=== PATIENT | male | born 1955 | race Caucasian/White ===

== ENCOUNTER 2016-04-17 05:17 | Day surgery (SDC) | payer BC ==
[~2016-04-17] VITALS: Ht 172.7 cm; Wt 81.6 kg
[~2016-04-17 05:17] MED LIST: ALEVE220 MG PO; VITAMIN C 500500 MG PO
[2016-04-17 06:20] VITALS: BP 104/68; Ht 172.7 cm; Wt 81.6 kg
--- NOTE | 2016-04-17 12:24 | NUR ---
1130--IV DC'D, PT UP TO DRESS AT THIS TIME. VILMA PAGE 1200--DISCHARGE INSTRUCTIONS GIVEN, PT VERBALIZES UNDERSTANDING. PT OFF UNIT VIA WC. VILMA PAGE
--- NOTE | 2016-05-22 08:50 | OP ---
PATIENT NAME: CHRISS LAI MEDICAL RECORD: [id number] :51 LOCATION:D.OPS ADMISSION DATE: SURGEON: MARIPOSA CORONA DPM DATE OF OPERATION: 04/17/2016 PREOPERATIVE DIAGNOSES: 1. Hallux abductovalgus, left foot. 2. Instability, first met cuneiform joint. 3. Plantar plate rupture, left second metatarsophalangeal joint. 4. Hammertoe deformity, left second digit. POSTOPERATIVE DIAGNOSES: 1. Hallux abductovalgus, left foot. 2. Instability, first met cuneiform joint. 3. Plantar plate rupture, left second metatarsophalangeal joint. 4. Hammertoe deformity, left second digit. PROCEDURES: 1. Spencer bunionectomy, left foot. 2. First met cuneiform joint fusion, left foot. 3. Enmanuel osteotomy, left second metatarsal. 4. Plantar plate repair, left second MPJ. 5. PIPJ fusion, left second digit. ANESTHESIA: General with preoperative popliteal block per the anesthesia department with infiltration of 3 cc of lidocaine and Marcaine, medial ankle along the coursing of the saphenous nerve. HEMOSTASIS: Left thigh tourniquet at 350 mmHg. PREOPERATIVE DETAILS: The patient was taken to the OR and placed on the operating table in a supine position. This was followed by induction of general anesthesia and infiltration of local anesthetic in the medial ankle area. The left extremity was then prepped and draped in the usual aseptic technique followed by elevation of extremity and inflation of tourniquet. A 15-blade was used to create for procedure. PROCEDURE #1: Spencer bunionectomy, left foot. A 15-blade was used to create an incision over the first ray dorsally extending to the base of proximal phalanx of the hallux. The incision was deepened down through subcutaneous tissue to the first MPJ where an inverted L capsulotomy was performed. The medial capsular flap was reflected and the head of the first metatarsal was delivered. A sagittal saw was used to resect the medial eminence. Attention was then directed to the first interspace where a lateral release was performed. Good clinical reduction of the lateral contracture was verified. PROCEDURE #2: First met cuneiform joint fusion. The incision as described in #1 was lengthened proximal to the dorsal aspect of the medial cuneiform. The incision was deepened down through subcutaneous tissue being sure to avoid sacrificing the medial dorsal cutaneous nerve. A periosteal incision was then made. Periosteum was freed. At this time, the first met cuneiform joint was visualized and resected with a bone saw and temporarily fixated with a K-wire and a 5-hole plate with 1 hole being for compression screw, was placed over the fusion site, utilizing the C-arm to verify good placement. There was excellent rigid internal fixation with excellent alignment of the first ray and excellent OPERATIVE REPORT [id number] CHRISS LAI compression of the fusion site. The wound was flushed. The periosteum as well as the first MPJ were then repaired with 2-0 Vicryl, the subcutaneous tissue with 4-0 Rapide and the skin was closed with 4-0 Rapide in a subcuticular technique followed by Dermabond. PROCEDURE #3: Enmanuel osteotomy, left second metatarsal. A 15-blade was used to create a curvilinear incision extending from the mid shaft of the second metatarsal on top of the PIPJ of the left second digit. The incision was deepened down through subcutaneous tissue to the extensor longus tendon which was transected in a Z fashion giving access to the second MPJ where a linear capsulotomy was performed exposing the base of proximal phalanx and the head of the second metatarsal. At this time, a sagittal saw was used to create a Enmanuel osteotomy from dorsal distal to plantar proximal in the second metatarsal. The capital fragment was translocated proximally and temporarily fixated with a K-wire. At this time, a second wire was placed in the proximal phalanx of the second digit. A wire retractor was then placed over the wires and the joint was distracted. There was noted to be a significant central tear of the plantar plate. A 15-blade was used to free the plantar plate attached to the base of the proximal phalanx. FiberWire was then passed through with a scorpion passer in 2 places, both medial and lateral to the tear. Two small drill holes were then placed in the base of the proximal phalanx and the FiberWire was passed up through the drill holes in the base of the proximal phalanx. The 2 K-wires were then removed. The Enmanuel osteotomy was then fixated with 2 pop-off screws giving good rigid fixation and the plantar plate was repaired by suturing using surgeon's knots to tie the FiberWire as it passed up through the base of proximal phalanx holding the second digit in a slightly plantarflexed position at the MPJ. Following tying the surgeon's knots, there was noted to be excellent repair of the plantar plate with the digit in a rectus position at the MPJ. PROCEDURE #4: Plantar plate repair. PROCEDURE #5: PIPJ fusion, left second digit. The incision as described above was utilized and this PIPJ was delivered. A sagittal saw was used to resect the head of the proximal phalanx and the base of the middle phalanx. A 2.7 drill was then used to drill the proximal and middle phalanx and a 2.7 TenFuse bone graft was placed in the proximal fragment with the distal fragment being elevated over the top and then compressed on the stump of the bone graft that was exiting the proximal phalanx giving excellent rigid fixation and alignment of the digit. The wound was flushed. The joint capsule of the second MPJ was then repaired with 2-0 Vicryl, the extensor longus tendon was repaired with 4-0 Rapide and the subcutaneous tissue was brought together with 4-0 Rapide and the skin was closed with 4-0 Rapide in a subcuticular technique followed by Dermabond, Adaptic, 4 x 4 and Conform were used to dress both wounds, followed by application of a modified Edmonds compression dressing. Tourniquet was deflated. POSTOPERATIVE DETAILS: The patient tolerated the procedure well and left the OR with vital signs stable and vascular status at preoperative levels. The patient was transported to recovery per anesthesia in stable condition. TRANSINT:[id number] Voice Confirmation ID: [id number] DOCUMENT ID: [id number] OPERATIVE REPORT [id number] CHRISS LAI, MARIPOSA KHAN at 0850 CC: [id number] DICTATION DATE: 04/17/16 0936 HOT MIX OPERATOR: 04/17/[address] [place] [address] 04/17/16 [place] [id number] [place] [address]
== END 2016-04-17 12:00 | disposition home or self-care (01) ==
LOC: D.OPS 05:17 → D.PAN 09:45 → D.OPS 12:00
DX: M20.12 Hallux valgus (acquired), left foot (principal); M25.375 Other instability, left foot; S93.692A Other sprain of left foot, initial encounter; M20.42 Other hammer toe(s) (acquired), left foot

== ENCOUNTER 2016-04-22 13:20 | Outpatient (CLI) | payer BC ==
[~2016-04-22] VITALS: Ht 172.7 cm; Wt 81.8 kg
--- NOTE | ~2016-04-22 | HEMODYNAMI ---
PATIENT:CHRISS LAI MEDICAL RECORD: [id number] : 51 LOCATION:[facility] D.[address] [facility]# [id number] ADMISSION DATE: 04/22/16 Generatedon:04/23/201611:34 Patient name: CHRISS LAI Patient #: [id number] SSN: : 1955 Date of study: 04/23/2016 Page: Of Hemodynamic Procedure Report Patient Data Patient Demographics Procedure consent was obtained First Name: CHRISS Gender: Male Last Name: JOELLE : 1955 [facility] Initial: KARLO Age: 60 year(s) Patient #: [id number] Race: Additional ID: [id number] Contact details Address: [address] [place] [address] [facility] State: [place] City: [place] Zip code: [address] Past Medical History Allergies: No known allergies Admission Admission Data Admission Date: 04/22/2016 Admission Time: 14:16 Admit Source: Other Insurance Payor: Private Room #: [id number] health insurance Height (in.): 68 BSA: 1.96 (m2) Height (cm.): 172.72 BMI: 27.49 (kg/m2) Weight (lbs.): 180.78 Weight (kg.): 82 Lab Results Lab Result Date: 04/23/2016 Lab Result Time: 9:26 Biochemistry Name Units Result Min Max BUN mg/dl 17 --(---*)-- 7 18 Creatinine mg/dl 1.1 --(--*-)-- 0.6 1.3 CBC Name Units Result Min Max Hemoglobin g/dl 15.9 --(--*-)-- 13.5 17.5 Procedure Procedure Types Cath Procedure Diagnostic Procedure LHC LH w/Coronaries PCI Procedure Coronary Stent Initial Miscellaneous Procedures Moderate Sedation up to 15 minutes Procedure Description Procedure Date Procedure Date: 04/23/2016 Procedure Start Time: 11:14 Procedure End Time: 11:33 Procedure Staff Name Function Naseem Hoff MD Performing Physician Miranda Garcia RT Scrub Ashley Liu RN Nurse Guero Baldwin RT Monitor Galileo Ledbetter RT [employer] Procedure Data Cath Procedure Fluoroscopy Diagnostic fluoroscopy Total fluoroscopy Time: 4.4 time: 4.4 min min Diagnostic fluoroscopy Total fluoroscopy dose: dose: 176.42 mGy 176.42 mGy Contrast Material Contrast Material Type Amount (ml) Isovue 300 81 Entry Location Entry Primary Successful Side Size Upsize Upsize Entry Closure Moser ccessful Closure Location (Fr) 1 (Fr) 2 (Fr) Remarks Device Remarks Radial Right 6 Fr Mechanical artery Short Compression Estimated blood loss: 10 ml Diagnostic catheters Device Type Used For End Catheter Placement Terumo 5Fr Rashi 110cm Procedure catheter Procedure Complications No complications Procedure Medications Medication Administration Route Dosage Oxygen NC 2 l/min Heparin Flush Bag added to field 2 bags (1000units/500ml NS) Lidocaine 2% added to field 20 Radial Cocktail added to field 1 syringe (Verapomil 2mg/Nitro 400mcg/Heparin 1500units) 0.9% NaCl I.V. 150 ml/hr Versed I.V. 1 mg Fentanyl I.V. 50 mcg Versed I.V. 1 mg Fentanyl I.V. 50 mcg Radial Cocktail I.A. 1 syringe (Verapomil 2mg/Nitro 400mcg/Heparin 1500units) Versed I.V. 1 mg Fentanyl I.V. 50 mcg Heparin Bolus I.V. 4000 units Versed I.V. 1 mg Fentanyl I.V. 50 mcg Plavix P.O. 75 mg Hemodynamics Rest BSA: 1.96 (m2) HGB: 15.9 (g/dl) O2 Consumption: Estimated: 238.73 (ml/min) O2 Co nsumption indexed: Estimated:121.8 (ml/min/m) Heart Rate: 82 (bpm) Snapshots Pre Cath Intra NCS Post Cath Vital Signs Time Heart Resp SPO2 NIBP Rhythm Pain Sedation Rate (ipm) (%) (mmHg) Status Level (bpm) 10:54:11 82 19 98 116/73(95) NSR 0 (11) 10(A) , No pain 10:58:13 82 15 96 119/75(92) NSR 0 (11) 10(A) , No pain 11:02:21 81 15 97 108/75(92) NSR 0 (11) 10(A) , No pain 11:06:27 82 16 96 109/71(94) NSR 0 (11) 10(A) , No pain 11:10:35 82 15 95 114/72(94) NSR 0 (11) 10(A) , No pain 11:14:46 85 16 96 121/67(83) NSR 0 (11) 10(A) , No pain 11:19:00 98 14 96 108/70(91) NSR 0 (11) 10(A) , No pain 11:23:06 91 16 96 116/71(84) NSR 0 (11) 10(A) , No pain 11:27:12 92 16 96 110/69(87) NSR 0 (11) 10(A) , No pain 11:30:04 91 14 96 99/66(91) NSR 0 (11) 10(A) , No pain Medications Time Medication Route Dose Verified Delivered Reason Note s Effectiveness by by 10:57:07 Oxygen NC 2 l/min Naseem Ashley Per physician Luis Eduardo Liu RN 10:57:14 Heparin Flush added 2 bags Naseem Gusman used for Bag to Luis Eduardo Hoff MD procedure (1000units/500ml field NS) 10:57:21 Lidocaine 2% added 20ml Naseem Naseem used for to vial Luis Eduardo Hoff MD procedure field 10:57:27 Radial Cocktail added 1 Naseem Naseem used for (Verapomil to syringe Luis Eduardo Hoff MD procedure 2mg/Nitro field 400mcg/Heparin 1500units) 11:00:23 0.9% NaCl I.V. 150 Naseem Ashley Per physician ml/hr Luis Eduardo Liu RN 11:13:54 Versed I.V. 1 mg Naseem Ashley for sedation Luis Eduardo Liu RN 11:14:01 Fentanyl I.V. 50 mcg Naseem Ashley for sedation Luis Eduardo Liu RN 11:15:42 Radial Cocktail I.A. 1 Naseem Naseem for (Verapomil syringe Luis Eduardo Hoff MD vasodilation 2mg/Nitro 400mcg/Heparin 1500units) 11:15:51 Versed I.V. 1 mg Naseem Ashley for sedation Luis Eduardo Liu RN 11:15:57 Fentanyl I.V. 50 mcg Naseem Ashley for sedation Luis Eduardo Liu RN 11:17:33 Versed I.V. 1 mg Naseem Ashley for sedation Luis Eduardo Liu RN 11:18:45 Fentanyl I.V. 50 mcg Naseem Ashley for sedation Luis Eduardo Liu RN 11:21:52 Versed I.V. 1 mg Naseem Ashley for sedation Luis Eduardo Liu RN 11:22:17 Fentanyl I.V. 50 mcg Naseem Ashley for sedation Luis Eduardo Liu RN 11:23:32 Heparin Bolus I.V. 4000 Naseem Ashley for dose units Luis Eduardo Liu RN anticoagulation verified with dr hoff 11:29:18 Plavix P.O. 75 mg Naseem Ashley for Luis Eduardo Liu RN antiplatelet therapy Procedure Log Time Note 10:15:38 Galileo Ledbetter RT(R) sent for patient. Start room use. 10:45:06 Informed consent obtained and on chart 10:45:34 Admit Source: Other 10:46:26 Time tracking: Regular hours 10:46:30 Plan of Care:Hemodynamics will remain stable., Cardiac rhythm will remain stable., Comfort level will be maintained., Respiratory function will remain adequate., Patient/ family verbilizes understanding of procedure., Procedure tolerated without complication., Recovers from procedure without complications.. 10:46:35 Patient received from Med II to CCL 2 Alert and oriented. Tansferred to table in Supine position. 10:46:36 Warm blankets applied, and sally hugger turned on for patient comfort. 10:46:36 Correct patient and procedure confirmed by team. 10:46:38 ECG and BP/O2 sat monitors applied to patient. 10:46:44 H&P Date Dictated: 04/22/2016 Within 30 days and on chart.. 10:46:45 Pre-procedure instructions explained to patient. 10:46:45 Pre-op teaching completed and patient verbalized understanding. 10:46:47 Family in patients room. 10:46:48 Patient NPO since Midnight. 10:53:10 Vital chart was started 10:57:07 Oxygen 2 l/min NC was given by Ashley Liu RN; Per physician; 10:57:14 Heparin Flush Bag (1000units/500ml NS) 2 bags added to field was given by Naseem Hoff MD; used for procedure; 10:57:21 Lidocaine 2% 20ml vial added to field was given by Naseem Hoff MD; used for procedure; 10:57:27 Radial Cocktail (Verapomil 2mg/Nitro 400mcg/Heparin 1500units) 1 syringe added to field was given by Naseem Hoff MD; used for procedure; 11:00:23 0.9% NaCl 150 ml/hr I.V. was given by Ashley Liu RN; Per physician; 11:02:19 Patient allergic to No known allergies 11:02:21 Is the patient allergic to Iodine/contrast media? No. 11:02:25 Is patient on blood thinner?Yes 11:02:27 ACC The patient was administered the following blood thiners within the last 24 hours: ACCPlavix 11:02:31 Patient diabetic? No. 11:02:35 Previous problem with sedation/anesthesia? No ? 11:02:36 Snore? Yes 11:02:37 Sleep apnea? No 11:02:39 Deviated septum? No 11:02:40 Opens mouth fully? Yes 11:02:41 Sticks out tongue? Yes 11:02:42 Airway obstruction? No ? 11:02:45 Dentures? No ? 11:02:51 Modified Anselmo's test Ulnar < 7 seconds 11:02:53 Patient pain scale 0/10 ?. 11:02:59 IV patent on arrival in right wrist with 0.9% NaCl at KVO. 11:03:29 Lab Result : Creatinine 1.1 mg/dl 11:03:29 Lab Result : BUN 17 mg/dl 11:03:29 Lab Result : Hemoglobin 15.9 g/dl 11:03:32 Lab results completed and on chart. 11:03:35 Right Radial & Right Groin area was prepped with chlora-prep and draped in sterile fashion 11:03:36 Alarms reviewed by R. N. 11:03:37 Sharps counted by scrub and verified by R.N. 11:03:39 Use device set Radial Dx 11:03:41 Tegaderm 4 x 4 opened to sterile field. 11:03:42 Acist Manifold opened to sterile field. 11:03:42 Acist Hand Control opened to sterile field. 11:03:43 Acist Syringe opened to sterile field. 11:03:43 Medline Cath Pack opened to sterile field. 11:03:44 Bag Decanter opened to sterile field. 11:03:45 Terumo 6Fr Slender Glidesheath opened to sterile field. 11:03:45 St Chato 260cm J .035 wire opened to sterile field. 11:03:57 Baseline sample Acquired. 11:04:02 Rhythm: sinus rhythm 11:04:08 Full Disclosure recording started 11:05:24 Patient Height : 172.72 inches 11:05:28 Patient Weight : 82 lbs 11:05:33 Insurance Payor : Private health insurance 11:06:18 ACC Patient presents with Unstable Angina CCS Anginal Class 3--Marked limitation of physical activity, angina occurs with ordinary activity.. 11:08:48 Zero performed for pressure channel P1 11:10:03 Zero performed for pressure channel P1 11:13:50 --------ALL STOP TIME OUT------ 11:13:50 Final Timeout: patient, procedure, and site verified with staff and physician. All members of the team are in agreement. 11:13:52 Right Radial & Right Groin site verified by team. 11:13:54 Versed 1 mg I.V. was given by Ashley Liu RN; for sedation; 11:13:54 Physical assessment completed. ASA score P 2 - A patient with mild systemic disease as per Naseem Hoff MD. 11:13:57 Sedation plan: IV Moderate Sedation Versed, Fentanyl 11:14:01 Fentanyl 50 mcg I.V. was given by Ashley Liu RN; for sedation; 11:14:34 Procedure started. 11:14:38 Local anesthetic to right radial artery with Lidocaine 2% by Naseem Hoff MD.INITIAL ACCESS ONLY 11:14:46 A 6 Fr Short sheath was inserted into the Right Radial artery 11:14:57 A Terumo 5Fr Rashi 110cm catheter was advanced over the wire and used for Procedure. 11:15:39 Baseline sample Acquired. 11:15:42 Radial Cocktail (Verapomil 2mg/Nitro 400mcg/Heparin 1500units) 1 syringe I.A. was given by Naseem Hoff MD; for vasodilation; 11:15:51 Versed 1 mg I.V. was given by Ashley Liu RN; for sedation; 11:15:57 Fentanyl 50 mcg I.V. was given by Ashley Liu RN; for sedation; 11:16:15 LV gram done using UJNE 11:16:18 Injector settings: Ml/sec: 5, Volume: 15, 11:17:01 EF : 60 % 11:17:18 RCA angiography performed. 11:17:27 ACCDominant side:Left 11:17:33 Versed 1 mg I.V. was given by Ashley Liu RN; for sedation; 11:17:49 Catheter exchanged over wire. 11:18:08 Medtronic Launcher 6Fr EBU 3.5 guide catheter opened to sterile field. 11:18:15 6 Fr ebu 3.5 guide catheter was inserted over the wire 11:18:45 Fentanyl 50 mcg I.V. was given by Ashley Liu RN; for sedation; 11:19:48 catheter removed, unable to advance. 11:19:54 Medtronic Launcher 5Fr EBU 3.5 guide catheter opened to sterile field. 11:20:02 5 Fr ebu 3.5 guide catheter was inserted over the wire 11:20:33 LCA angiography performed. 11:21:52 Versed 1 mg I.V. was given by Ashley Liu RN; for sedation; 11:22:01 Employee Benefit Plans BasixCompak Inflation Kit opened to sterile field. 11:22:02 Chua Whisper J 300cm 0.014 guide wire opened to sterile field. 11:22:17 Fentanyl 50 mcg I.V. was given by Ashley Liu RN; for sedation; 11:23:32 Heparin Bolus 4000 units I.V. was given by Ashley Liu RN; for anticoagulation; dose verified with dr hoff 11:23:42 whisper wire advanced. 11:26:21 Wire advanced across lesion. 11:26:24 Inflation Number: 1 A Promus Premier OTW 2.25 x 20 stent was prepped and advanced across the Mid LAD. The stent was deployed at 0 ANA for 0:10 (min:sec). 11:26:53 ACC PCI Site: mLAD has 80% stenosis. 11:26:55 ACC Pre-intervention ANNE Flow is 3. 11:28:09 ACC Post-intervention ANNE Flow is 3. 11:28:25 Stent catheter was removed intact over wire. 11:: Wire removed. 11:: Guide catheter removed. 11::32 Terumo TR Band Standard opened to sterile field. 11::43 Sheath removed intact; hemostasis achieved with Mechanical Compression to the Right Radial artery. 11:28:45 Procedure ended.(Physican Out) 11::18 Plavix 75 mg P.O. was given by Ashley Liu RN; for antiplatelet therapy; ::16 Fluoroscopy time 04.40 minutes. 11:: Flurop Dose total: 176.42 11:: Fluoroscopy dose: 176.42 mGy :: Contrast amount:Isovue 300 81ml. 11:31:27 Sharps counted by scrub and verified by R.N. 11::29 TR band inflated with 10cc of air. 11:31:31 Insertion/operative site no bleeding no hematoma. 11:31:44 Post right radial artery:stable, soft, clean and dry 11:31:46 Post Procedure Pulses reassessed and unchanged 11:31:48 Post-procedure physical assessment completed. ASA score P 2 - A patient with mild systemic disease as per Naseem Hoff MD. 11:31:51 Post procedure rhythm: unchanged. 11:31:53 Estimated blood loss: 10 ml 11:31:55 Post procedure instruction explained to patient.Patient verbalizes understanding. 11:31:55 Patient needs reinforcement of post procedure teaching. 11:32:26 Procedure type changed to Cath procedure, Diagnostic procedure, LHC, LHC w/Coronaries, PCI procedure, Coronary Stent Initial, Miscellaneous Procedures, Moderate Sedation up to 15 minutes 11:32:29 Procedure and supply charges have been captured, reviewed, submitted and are correct. 11:33:02 Procedure Complication : No complications 11:33:03 Vital chart was stopped 11:33:04 See physician's report for complete and final results. 11:33:06 Report given to PCU. 11:33:10 Patient transfered to PCU with Stretcher. 11:33:15 Procedure ended. 11:33:15 Full Disclosure recording stopped 11:33:22 ACC-PCI Only Patient was given prescriptions, or instructed by Naseem Hoff MD to start/continue the following medications upon discharge: Plavix Intervention Summary Intervention Notes Time ActionType Lesion and Equipment Action# Pressure Duration Attributes Used 11:26:24 Place stent Mid LAD Promus 1 0 00:10 Premier OTW 2.25 x 20 stent Device Usage Item Name Manufacture Quantity Catalog Number Hospital Part Current Mini mal Lot# / Charge Number Stock Stock Serial# Code Tegaderm 4 3M 1 [id number] 822637 [id number] 5 x 4 Acist Acist 1 11509 191334 436278 846363 5 Manifold Medical Systems Inc Acist Hand Acist 1 31696 200219 732115 016808 5 Control Medical Systems Inc Acist Acist 1 49437 670346 220905 040086 20 Syringe Medical Systems Inc Medline Cardinal 1 [id number] 915514 94337 893686 5 Cath Pack Health Bag Microtek 1 2002S 284234 87859 398591 5 Power Vision Inc. Terumo 6Fr Terumo 1 [id number] 270156 217604 779601 [address] St Chato 1 [id number] 290328 950769 693805 30 260cm J .035 wire Terumo 5Fr Terumo 1 40-1378 046944 412127 030081 5 Rashi 110cm catheter Medtronic Medtronic 1 [id number] 637091 56193 127151 3 Launcher 6Fr EBU 3.5 guide catheter Medtronic Medtronic 1 [id number] 540007 461011 109677 1 Launcher 5Fr EBU 3.5 guide catheter Merit Merit 1 [id number] 561399 426789 812921 15 BasixComnek Medical Inflation Kit Chua Chua 1 [id number] 414296 403593 519505 5 Whisper J Vascular 300cm 0.014 guide wire Promus [place] 1 [id number] 277997 756131 5 [id number] Premier OTW Scientific 2.25 x 20 stent Terumo TR Terumo 1 [id number] 146754 443848 629569 40 Band Standard Signature Audit [place] Stage Time Signature Unsigned Intra-Procedure 04/23/2016 Guero Baldwin 11:34:10 AM RT(R) Signatures Monitor : Guero Baldwin RT Signature : Date : Time : [address] [place] [address]
[2016-04-22 09:31] LABS: BASOPHILS 0.1 % (0.0-2.0); EOSINOPHILS 1.3 % (0-7); HEMATOCRIT 46.8 % (42.0-54.0); HEMOGLOBIN 15.9 g/dL (13.5-17.5); IMMATURE GRANULOCYTES 0.4 % (0-5); LYMPHOCYTES 11.6 % (15-50); MCH 29.1 pg (26.0-34.0); MCV 85.6 fL (80.0-100.0); MEAN PLATELET VOLUME 9.3 fL (7.4-10.4); MONOCYTES 11.7 % (2-11); NEUTROPHILS 74.9 % (40-80); PLATELET COUNT 268 10x3/uL (130-400); RBC 5.47 10x6/uL (4.20-6.10); RDW 12.4 % (11.5-14.5); WBC 14.4 10x3/uL (4.8-10.8)
[2016-04-22 09:49] LABS: ALBUMIN 3.5 g/dL (3.4-5.0); ALKALINE PHOSPHATASE 84 U/L (46-116); ALT (SGPT) 39 U/L (10-68); CALC OSMOLALITY 276 mosm/kg (275-300); CALCIUM 9.1 mg/dL (8.5-10.1); CARBON DIOXIDE 23.2 mmol/L (21.0-32.0); CHLORIDE - SERUM 102 mmol/L (98-107); CREATININE - SERUM 1.1 mg/dL (0.6-1.3); GLUCOSE 122 mg/dL (74-106); POTASSIUM - SERUM 3.7 mmol/L (3.5-5.1); PROTEIN - SERUM 7.8 g/dL (6.4-8.2); SODIUM 137 mmol/L (136-145); UREA NITROGEN 17 mg/dL (7-18); eGFR NON AFRICAN AMERICAN 72 mL/min (90-120)
[2016-04-22 09:52] LABS: TROPONIN-I < 0.017 ng/mL (0.000-0.060)
--- NOTE | 2016-04-22 14:32 | NUR ---
TRANSFER FROM ER BY STRETCHER. OREINTED TO ROOM. CALL LIGHT IN REACH. WILL CONT. PLAN OF CARE.
[2016-04-22] MEDS ORDERED: KEFLEX500 MG PO (14:39)
[2016-04-22] MEDS ORDERED: HYDROCODONE-APA1 TAB PO (14:40)
[2016-04-22 14:48] VITALS: BP 143/70; Ht 172.7 cm; Wt 81.8 kg
[2016-04-22 16:12] VITALS: BP 116/72
--- NOTE | 2016-04-22 17:09 | NUR ---
CONSENTS SIGNED FOR [facility].
--- NOTE | 2016-04-22 19:00 | NUR ---
RECEIVED PT IN BED AAOX4 RESP UNLABORED NAD NOTED DENIES ANY NEEDS OR DISCOMFORT AT THIS TIME
[2016-04-22 20:23] VITALS: BP 127/78
--- NOTE | 2016-04-22 23:56 | NUR ---
RESTING QUIETLY NAD NOTED
[2016-04-23 01:04] VITALS: BP 125/68
[2016-04-23 04:29] VITALS: BP 107/70
[2016-04-23 07:58] VITALS: BP 119/66
[2016-04-23] MEDS ORDERED: PLAVIX75 MG PO (11:48)
[2016-04-23] MEDS ORDERED: ASPIRIN81 MG PO (11:48)
--- NOTE | 2016-04-23 11:49 | NUR ---
RETURN BACK TO ROOM VIA BED FROM EMPLOYMENT COACH. 1 STENT THROUGH RT WRIST. TR BAND ON. NO BLEEDING. PULSES +2 BILATERALLY. FAMILY AT BEDSIDE. BP-109/68, P-84bpm SINUS RHYTHM, R-16. INSTRUCT TO NOT USE RT HAND. CONTINUE PLAN OF CARE. BED LOCKED AND LOW. CALL LIGHT IN REACH. TWO SIDERAILS ON.
[2016-04-23 12:18] VITALS: BP 109/68
--- NOTE | 2016-04-23 14:29 | NUR ---
Patient Name: CHRISS LAI Admission Status: ER Accout number: [id number] Admission Date: 04-22-2016 : 1955 Admission Diagnosis: Attending: LIANNE Current LOS: 1 Anticipated DC Date: 04-23-2016 Planned Disposition: Home Primary Insurance: Patient Education Systems [facility] Discharge Planning Comments: * Is the patient Alert and Oriented? Yes 0 * How many steps to enter\exit or inside your home? 2 0 * PCP DR. DAVIS 0 * Pharmacy [facility] 0 * Preadmission Environment Home with Family 0 * ADLs Independent 0 * Equipment Crutch 0 * Other Equipment [employer] [facility], MEDICAL EQUIPMENT PROVIDER 0 * List name and contact numbers for known caregivers / representatives who currently or will assist patient after discharge: RASHARD LAI, SPOUSE, 0 * Community resources currently utilized None 0 * Please name any agencies selected above. NONE 0 * Additional services required to return to the preadmission environment? No 0 * Can the patient safely return to the preadmission environment? Yes 0 * Has this patient been hospitalized within the prior 30 days at any hospital? No 0 CM MET WITH PT IN ROOM TO DISCUSS DISCHARGE PLANNING AND NEEDS. PT REPORTS LIVING AT HOME INDEPENDENTLY WITH SPOUSE. PT HAS CRUTCHES ONLY, PREFERENCE ON PROVIDER IS [employer]. PT HAS NO OUTSIDE SERVICES ASSISTING IN THE HOME. CM DISCUSSED AVAILABILITY OF HOME HEALTH, REHAB SERVICES AND MEDICAL EQUIPMENT. PT DENIES DISCHARGE NEEDS OTHER THAN THE WHEELCHAIR. PT'S SPOUSE IS HERE TO PICK PT UP FOR DISCHARGE HOME TODAY. CM CALLED [email or web address] [facility], , SPOKE TO LEXIS WHO REPORTS THAT SHE IS UNSURE IF INSURANCE WILL PAY FOR WHEELCHAIR RENTAL FOR SHORT PERIOD OF TIME AND WILL CHECK PT'S INSURANCE AND FOLLOW UP WITH CM. CM FAXED REFERRAL TO [email or web address] AT [phone]. CM WAITING AUTHORIZATION FROM PT'S INSURANCE TO PROVIDE WHEELCHAIR THROUGH [email or web address] FOR HOSPITAL DELIVERY OF WHEELCHAIR AND PT'S DISCHARGE HOME. Sales Route Driver Helper: Archie Vail
--- NOTE | 2016-04-23 16:09 | NUR ---
Patient Name: CHRISS LAI Encounter No: [id number] : 1955 Primary Insurance: [employer] [place] [facility] Anticipated DC Date: 04-23-2016 Planned Disposition: Home DCP follow-up note: CM RECEIVED CALL FROM ANNA OF [facility], , INSURANCE WILL PAY FOR WHEELCHAIR RENTAL FOR ONE MONTH . COPAY IS $59.12 FOR ONE MONTH RENTAL (MINIMAL COVERED BY INSURANCE, PAYABLE AT DELIVERY. CM SPOKE TO PT AND SPOUSE IN ROOM, PROVIDED ABOVE INFORMATION, PT / SPOUSE AGREED TO RENTAL. CM CALLED ANNA AND NOTIFIED OF AGREEMENT. WHEELCHAIR TO BE DELIVERED TO PT IN ROOM FOR DISCHARGE HOME THIS AFTERNOON. BEDSIDE NURSE NOTIFIED. NO FURHTER DISCHARGE NEEDS IDENTIFIED. Freelance Art Director: Archie Vail
[2016-04-23 16:16] VITALS: BP 119/72
--- NOTE | 2016-04-23 17:45 | NUR ---
ALERT AND ORIENTED X4. TR BAND REMOVED. NO BLEEDING. NO HEMATOMA. DC RT FA IV TIP INTACT. HOME WHEELCHAIR ARRIVE TO ROOM. DISCHARGE INSTRUCTIONS GIVEN VERBALLY AND WRITTEN. ESCORT TO RIDE VIA WHEELCHAIR. REMAINS FREE FROM INJURY.
--- NOTE | 2016-05-03 08:46 | OP ---
PATIENT NAME: CHRISS LAI MEDICAL RECORD: [id number] :[birth year] LOCATION:[facility] ADMISSION DATE: SURGEON: REYNOLD SIDHU MD DATE OF OPERATION: 04/23/2016 PROCEDURES: 1. PTCA stent LAD. 2. Left heart catheterization. 3. Selective coronary angiography. 4. Left ventriculogram. INDICATION: Angina and coronary artery disease. DESCRIPTION OF THE PROCEDURE: After informed consent was obtained and after detailed explanation of risks, benefits as well as alternative therapies, the patient elected to proceed with angiogram and angioplasty. The right radial area was prepped and draped in normal sterile fashion. The right radial artery was cannulated via modified Seldinger technique with placement of 6-Israeli sheath. All catheters exchanged through this sheath. FINDINGS: The left ventriculogram was performed in the standard 30-degree JUNE view, reveals good cardiac wall motion throughout all segments. Overall ejection fraction estimated at 60%. SELECTIVE CORONARY ANGIOGRAPHY: 1. Left main showed no significant angiographic disease. 2. Left anterior descending has 80% stenosis in the mid vessel, otherwise only mild irregularities. 3. Left circumflex shows mild irregularities, but no flow-limiting stenosis. 4. Right coronary has mild irregularities, but no flow-limiting stenosis throughout. PERCUTANEOUS TRANSLUMINAL CORONARY ANGIOPLASTY STENT OF THE LEFT ANTERIOR DESCENDING: The stent used was a 2.25 x 20 mm Promus. Result was 0% residual stenosis. OVERALL IMPRESSION: Successful percutaneous transluminal coronary angioplasty stent of the left anterior descending going from 80% initial stenosis to 0% residual. TRANSINT:[id number] Voice Confirmation ID: [id number] DOCUMENT ID: [id number] REYNOLD SIDHU MD at 0846 CC: [id number] DICTATION DATE: 04/23/16 1132 SYSTEMS INTEGRATION ENGINEER: 04/23/16 1814 DEP CLI 04/23/16 [place] [address]
--- NOTE | 2016-05-03 08:46 | HP ---
PATIENT: CHRISS LAI MEDICAL RECORD: [id number] ACCOUNT: [id number] LOCATION:[facility] : 51 ADMISSION DATE: 04/22/16 HISTORY AND PHYSICAL EXAMINATION DIAGNOSES: 1. Angina. 2. Shortness of breath. 3. Dyspnea on exertion. 4. Diaphoresis. 5. Recent foot surgery. HISTORY OF PRESENT ILLNESS: Mr. Lai has a cardiac history of a cardiac catheterization in 1993, was told he had vasospasm, was put in a study at [facility]. He actually did well with no medications. He has not been bothered by any angina until just a past few days. He has noticed increased shortness of breath for the past few months. He had foot surgery last Friday. Since then, he has found that it is very difficult to get around. He has been short of breath as well as having chest pressure and episodes of diaphoresis. His CTA was negative for pulmonary embolus. He has not been sedentary. He has been getting around on crutches despite the foot surgery, but has been having increasing episodes of chest pain, chest discomfort, compatible with angina, very classic chest tightness, heaviness, squeezing sensation. DIAGNOSTIC DATA: His EKG is with no acute ST-T abnormalities. PHYSICAL EXAMINATION: GENERAL APPEARANCE: Well-nourished, well-developed, appears stated age. Level of distress, comfortable. PSYCHIATRIC: Mental status, alert, normal affect. Orientation, oriented to time, place and person. EYES: Lids and conjunctiva, noninjected. No discharge, no pallor. ENT: Lips, teeth, gums, normal dentition. Oropharynx, no cyanosis, no pallor. NECK: Carotid arteries, bilateral normal upstroke, no bruits, no thrills. JUGULAR VEINS: No jugular venous pressure or distention. CERVICAL LYMPH NODES: Nontender, nonenlarged. THYROID: Not enlarged. Nontender. No nodules. LUNGS: Respiratory effort, unlabored. CHEST: Normal curvature. No thoracic deformity. No chest wall tenderness. Percussion, resonant. Auscultation, clear. No wheezes, no rales, no rhonchi. CARDIOVASCULAR: Precordial exam, nondisplaced. No heaves or pericardial thrills. Rate and rhythm, regular. Heart sounds, normal S1, normal S2. No S3, no gallop, no rub. Systolic murmur, not heard. Diastolic murmur, not heard. EXTREMITIES: No cyanosis, no edema. Peripheral pulses, full and equal in all extremities, except as noted. No bruits appreciated. ABDOMEN: Soft, nondistended. Normal aorta. No bruit. Nontender. No masses. Liver, nontender, no hepatomegaly. Spleen, nontender, no splenomegaly. MUSCULOSKELETAL: No joint tenderness. No joint swelling. No erythema. NEUROLOGICAL: Normal gait, normal strength, normal tone. SKIN: Warm and dry. REVIEW OF SYSTEMS: The patient reports easy bruising but reports no swollen glands. The patient reports no fever, no night sweats, no significant weight gain, no significant weight loss. No significant exercise tolerance. The patient reports no dry eyes, no irritation, no vision change. Patient reports HISTORY AND PHYSICAL [id number] CHRISS LAI no difficulty hearing and no ear pain. Patient reports no frequent nose bleeds or nose and sinus problems. Patient reports on arm pain on exertion. No shortness of breath while lying down. No history of heart murmur. Patient reports no cough, no wheezing or coughing up blood. Patient reports no abdominal pain, no vomiting. Normal appetite. No diarrhea and not vomiting blood. No nausea and no constipation. Patient reports no incontinence. No difficulty urinating. No hematuria. No increased frequency. Patient reports no muscle aches. No weakness, no arthralgias, no back pain. No swelling of the extremities. Patient reports no abnormal mole, no jaundice, no rashes. Reports no loss of consciousness. No weakness and no numbness. No seizures, dizziness, or headaches. The patient reports no depression, no sleep disturbance, feeling safe in a relationship and no alcohol abuse. Patient reports on fatigue. Reports no runny nose or sinus pressure. No itching, no hives, and no frequent sneezing. OVERALL IMPRESSION: New onset anginal symptomatology, worsening shortness of breath associated with episodes of diaphoresis. His story is very compatible with an escalating anginal symptomatology. We will proceed with coronary angiography. Further care depends upon findings of the angiography. TRANSINT:[id number] Voice Confirmation ID: [id number] DOCUMENT ID: [id number] REYNOLD SIDHU MD at 0846 CC: [id number] DICTATION DATE: 04/22/16 1256 NUTRITION TEACHER: 04/22/16 1435 DEP CLI 04/23/16 [place] [id number] [place] [id number]
--- NOTE | 2016-05-03 08:46 | DS ---
PATIENT:CHRISS LAI :51 MEDICAL RECORD: [id number] DISCHARGE SUMMARY ADMISSION DATE: 04/22/16 DISCHARGE DATE: 04/23/16 DATE OF DISCHARGE: 04/23/2016 DIAGNOSES: 1. Angina. 2. Coronary artery disease. 3. Percutaneous transluminal coronary angioplasty stent of left anterior descending this admission. HOSPITAL COURSE: This is a gentleman who presents with unstable anginal symptomatology, found to have significant disease of the LAD, and underwent successful PTCA stent of the LAD. He had an uneventful postop course. He was discharged home with the addition of aspirin and Plavix to his medical regimen. We will follow up with [facility] in 1 month. TRANSINT:[id number] Voice Confirmation ID: [id number] DOCUMENT ID: [id number] REYNOLD SIDHU MD at 0846 CC: [id number] DICTATION DATE: 04/23/16 1131 BED MANAGER: 04/24/16 0613 DEP CLI 04/23/16 [place] [id number] [place] [address]
== END 2016-04-23 17:47 | disposition home or self-care (01) ==
LOC: OBSVTIME → D.OPS 13:20 → D.M2 14:16 → OBSVTIME 14:16 → D.ER 14:16 → D.SDCHOLD 15:48 → D.M2 15:48 → EDSTATUS 04-23 07:00 → D.M2 04-23 17:47 → D.OPS 04-23 17:47
PROVIDERS: Family Medicine
DX: I25.119 Atherosclerotic heart disease of native coronary artery with unspecified angina pectoris (principal); R61 Generalized hyperhidrosis